=== PATIENT | male | born 1990 | race Caucasian/White ===

== ENCOUNTER 2017-02-09 13:19 | Emergency (ER) | payer SELFPAY ==
[2017-02-09 13:26] VITALS: BP 130/78; PULSE 79; RESP 18; TEMP 97.7; O2SAT 97
--- NOTE | 2017-02-09 13:53 | EDPHY ---
H & P Stated Complaint: Tooth Pain HPI/ROS: HPI CHIEF COMPLAINT: LEFT POSTERIOR DENTAL PAIN. HISTORY OF PRESENT ILLNESS: Patient is a 26-year-old male, otherwise healthy no significant medical history, presents emergency room with left posterior dental pain. He states that he fractured his tooth recently. Continue have pain over the past weekend. No fever. No trouble swallowing. No significant jaw line swelling. He does not have a dental follow-up appointment till later this week. Could not stand the pain. Pain is 6/10 left posterior lower dental pain. Past Medical History: No significant medical history Past Surgical History: Appendectomy Social History: Denies daily use of drugs alcohol, does smoke tobacco daily. Family History: Noncontributory ROS REVIEW OF SYSTEMS: A comprehensive 10 point review of systems is otherwise negative aside from elements mentioned in the history of present illness. Exam Constitutional triage nursing summary reviewed, vital signs reviewed, awake/ alert. Eyes normal conjunctivae and sclera, EOMI, PERRLA. HENT oropharynx: Tooth 16. Has a fracture with a metal feeling present. No gumline abscess. No Matthew's. normal inspection, atraumatic, moist mucus membranes, no epistaxis, neck supple/ no meningismus, no raccoon eyes. Respiratory clear to auscultation bilaterally, normal breath sounds, no respiratory distress, no wheezing. Cardiovascular rate normal, regular rhythm, no murmur, no edema, distal pulses normal. Gastrointestinal soft, non-tender, no rebound, no guarding, normal bowel sounds, no distension, no pulsatile mass. Genitourinary no CVA tenderness. Musculoskeletal no midline vertebral tenderness, full range of motion, no calf swelling, no tenderness of extremities, no meningismus, good pulses, neurovascularly intact. Skin pink, warm, & dry, no rash, skin atraumatic. Neurologic awake, alert and oriented x 3, AAOx3, moves all 4 extremities equally, motor intact, sensory intact, CN II-XII intact, normal cerebellar, normal vision, normal speech. Psychiatric normal mood/affect. Heme/Lymph/Immune no lymphadenopathy. Differential Diagnosis: Includes but is not limited to in a particular order acute dental pain from dental fracture, apical abscess, pulpitis,Aveolitis Medical Decision Making: Plan for this patient started on pen VK, ibuprofen for mild pain [place] for severe pain. Dental 8 follow-up. Patient understands refrain from smoking. Source: Patient - Personal History Current Tetanus Diphtheria and Acellular Pertussis (TDAP): Yes - Medical/Surgical History Hx Asthma: No Hx Chronic Respiratory Disease: No Hx Diabetes: No Hx Cardiac Disease: No Hx Renal Disease: No Hx Cirrhosis: No Hx Alcoholism: No Hx HIV/AIDS: No Hx Splenectomy or Spleen Trauma: No Other PMH: Appy - Social History Smoking Status: Current every day smoker Constitutional: Initial Vital Signs Temperature (C) 36.5 C 02/09/17 13:24 Heart Rate 79 02/09/17 13:24 Respiratory Rate 18 02/09/17 13:24 Blood Pressure 130/78 H 02/09/17 13:24 O2 Sat (%) 97 02/09/17 13:24 O2 Delivery Mode Room Air Allergies/Adverse Reactions: No Known Allergies Allergy (Unverified 02/09/17 13:24) Home Medications: Medication Instructions Recorded Hydrocodone/APAP 5/325 [[place] 1 - 2 tab PO Q4H PRN #14 tab 02/09/17 5/325] Ibuprofen [Motrin (*)] 800 mg PO Q6-8PRN #14 tab 02/09/17 Penicillin V Potassium [Penicillin 500 mg PO BID #14 tab 02/09/17 VK] Departure - Departure Disposition: Home, Routine, Self-Care Clinical Impression: Dental decay Condition: Good Instructions: Toothache (ED), Acute Dental Trauma (ED) Referrals: NONE *PRIMARY CARE P,. [Primary Care Provider] - As per Instructions Dental [facility] [Outside] - As per Instructions Prescriptions: Hydrocodone/APAP 5/325 [[place] 5/325] 1 - 2 tab PO Q4H PRN #14 tab PRN Reason: Pain, Moderate Ibuprofen [Motrin (*)] 800 mg PO Q6-8PRN #14 tab Penicillin V Potassium [Penicillin VK] 500 mg PO BID #14 tab
== END 2017-02-09 14:19 | disposition home or self-care (01) ==
DX: K02.9 Dental caries, unspecified (principal); F17.200 Nicotine dependence, unspecified, uncomplicated